=== PATIENT | female | born 1935 | race Caucasian/White ===

== ENCOUNTER 2019-06-17 10:22 | Outpatient (CLI) | payer MEDICARE, SELFPAY ==
[2019-06-17 11:03] LABS: Hematocrit 35.7 % (37.0-47.0); Hemoglobin 10.9 g/dL (12.0-15.0); Mean Corpuscular HGB Conc 30.5 g/dl (32-36); Mean Corpuscular Volume 91.8 fl (80-100); Mean Platelet Volume 11.9 fl (7.4-10.4); Platelet Count Result 255 k/mm3 (150-375); Red Blood Count 3.89 M/mm3 (4.2-5.4); White Blood Count 14.5 K/mm3 (4.5-10.0)
[2019-06-17 11:15] LABS: Alanine Aminotransferase 27 U/L (4-35); Albumin Level 3.8 g/dL (3.5-5.1); Alkaline Phosphatase 52 U/L (38-126); Aspartate Amino Transferase 25 U/L (14-36); Bilirubin,Total 0.7 mg/dL (0.2-1.3); Blood Urea Nitrogen 37 mg/dL (7-17); Calcium 9.3 mg/dL (8.4-10.2); Carbon Dioxide 23 mmol/L (22-30); Chloride 100 mmol/L (98-107); Estimated Glomerular Filt Rate 39; Glucose 73 mg/dL (65-105); Potassium 4.6 mmol/L (3.4-5.0); Sodium 136 mmol/L (137-145)
[2019-06-17 11:37] LABS: Free T4 Free Thyroxine 0.77 ng/mL (0.78-2.19)
[2019-06-17 11:45] LABS: Thyroid Stimulating Hormone 0.258 uIU/mL (0.465-4.680)
== END 2019-06-17 10:23 | disposition home or self-care (01) ==
PROVIDERS: PCP Internal Medicine; Visit Provider Internal Medicine
DX: R53.83 Other fatigue (principal)
CPT/HCPCS: 36415; 80053; 84439; 84443; 85027

== ENCOUNTER 2019-06-22 20:43 | Emergency (ER) | payer MEDICARE, SELFPAY ==
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
[2019-06-22 20:44] VITALS: PULSE 0; TEMP 36.8
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
--- NOTE | 2019-06-22 20:45 | PC.NURSE ---
PT ARRIVE WITH 70.5 ET TUBE TAPED AT 23 AT THE TEETH. EQUAL RISE AND FALL. EQUAL BREATH SOUNDS
[2019-06-22 20:48] VITALS: BP 144/106; PULSE 166; RESP 20; TEMP 36.8; O2SAT 90
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
[2019-06-22 21:09] VITALS: BP 104/84; PULSE 82; RESP 20; O2SAT 98
[2019-06-22 21:16] VITALS: BP 116/89; PULSE 74; RESP 20; O2SAT 98
--- NOTE | 2019-06-22 21:20 | PC.NURSE ---
WHEN PT ARRIVED C-COLLAR PLACED
[2019-06-22 21:26] VITALS: BP 116/89; PULSE 74; RESP 20; O2SAT 98
[2019-06-22] MEDS: CLINDAMYCIN 600 MG/NS 50 ML 600 MG/50 ML PIGGYBACK 100 MG IVPB (21:37)
[2019-06-22] MEDS: TETANUS,DIPHTHERIA,AC PERTUSSIS ADULT (0.5 ML) BOOSTRIX IM (21:38)
[2019-06-22 22:05] LABS: Glucose Point of Care 91 (65-105)
--- NOTE | 2019-06-24 20:45 | ECG_ITS ---
Measurements Intervals [place] Rate: 149 P: FL: 0 QRS: 88 QRSD: 89 T: 70 QT: 289 QTc: 456 Interpretive Statements ATRIAL FIBRILLATION WITH RAPID VENTRICULAR RESPONSE VENTRICULAR COUPLET AND FREQUENT VENTRICULAR PREMATURE COMPLEXES ST-T WAVE ABNORMALITY IN ANTEROLATERAL LEADS- CONSIDER ISCHEMIA BASELINE ARTIFACT- II, III, AVR, AVF, V4-V6 ABNORMAL ECG Electronically Signed On 06-30-2019 12:48:26 [employer] by Brandon Ríos D.O.
--- NOTE | 2019-11-11 10:27 | PC.NURSE ---
LATE ENTRY This note is being entered to document information to the patient's record. The following information was omitted on [06/22/19], by [Dr. Faria]. Verbal order for Left short leg posterior splint.
== END 2019-06-22 21:25 | disposition short-term general hospital (02) ==
PROVIDERS: Emergency Provider Emergency Medicine; PCP Internal Medicine
DX: I46.9 Cardiac arrest, cause unspecified (principal); I48.0 Paroxysmal atrial fibrillation; S82.872B Displaced pilon fracture of left tibia, initial encounter for open fracture type I or II; Z23 Encounter for immunization; F41.9 Anxiety disorder, unspecified; M19.90 Unspecified osteoarthritis, unspecified site; Z86.73 Personal history of transient ischemic attack (TIA), and cerebral infarction without residual deficits; E78.5 Hyperlipidemia, unspecified; M81.0 Age-related osteoporosis without current pathological fracture; G62.9 Polyneuropathy, unspecified; Z85.828 Personal history of other malignant neoplasm of skin; Z87.440 Personal history of urinary (tract) infections; Z98.49 Cataract extraction status, unspecified eye; Z96.643 Presence of artificial hip joint, bilateral; Z87.891 Personal history of nicotine dependence; Z79.82 Long term (current) use of aspirin
CPT/HCPCS: 29515; 36415; 71045; 73590; 90471; 90715; 92950; 93005; 96374; 99291